=== PATIENT | female | born 1995 | race Caucasian/White ===

== ENCOUNTER 2019-04-06 14:29 | Emergency (ER) | payer OTHER ==
--- OUTSIDE RECORDS SUMMARY | 2019-04-06 16:46 | XMS REPORT | Continuity of Care Document ---
:1995 External Reference #:[id number] Demographics Phone Unavailable Preferred Language Unknown Marital Status Unknown Pentecostalism Affiliation Unknown Race Unknown Ethnic Group Unknown Author Name Radha Patel Description No Information Available Social History Type Date Description Comments Sex Unknown Allergies, Adverse Reactions, Alerts Description No Information Available Medications Description No Information Available Immunizations Description No Information Available Vital Signs Description No Information Available Results Description No Information Available Procedures Description No Information Available Medical Devices Description No Information Available Encounters Description No Information Available Assessments Description No Information Available Plan of Treatment No Information Available Functional Status Description No Information Available Mental Status Description No Information Available Referrals Description No Information Available
--- NOTE | 2019-04-06 17:50 | ED ---
Palpitations / Dysrhythmia - HPI Summary HPI Summary: Patient complains of weird sensation of fluttering in her chest 2 weeks, worst in the past 4 days. Pain rated at 2/10, involves sternum and epigastric area. Also complains of lightheadedness. Denies fever, cough, sore throat, SOB, N/3/D , abdominal pain, change in urine, change in BM. Medical history is anxiety, anemia. Denies caffeine, EtOH, recreational drug use. - History of Current Complaint Chief Complaint: EDDysrhythmPalp Time Seen by Provider: 04/06/19 17:46 Hx Obtained From: Patient Onset/Duration: Gradual Onset, Lasting Days Timing: Intermittent Episodes Lasting: Severity Initially: Moderate Severity Currently: Moderate Character: Fluttering Aggravating: Nothing Alleviating: Nothing Associated Signs & Symptoms: Lightheadedness, Chest Pain - Allergy/Home Medications Allergies/Adverse Reactions: Allergies Allergy/AdvReac Type Severity Reaction Status Date / Time No Known Allergies Allergy Verified 04/06/19 14:40 PMH/Surg Hx/FS Hx/Imm Hx Endocrine/Hematology History: Denies: Hx Anticoagulant Therapy Cardiovascular History: Denies: Hx Pacemaker/ICD History: Denies: Hx Dialysis Sensory History: Denies: Hx Eye Prosthesis Opthamlomology History: Denies: Hx Legally Blind EENT History: Denies: Hx Deafness Neurological History: Denies: Hx Dementia Infectious Disease History: No Infectious Disease History: Denies: Traveled Outside the [place] in Last 30 Days - Family History Known Family History: Positive: Non-Contributory - Social History Alcohol Use: Occasionally Hx Substance Use: No Hx Tobacco Use: No Review of Systems Constitutional: Negative Eyes: Negative ENT: Negative Positive: Palpitations Respiratory: Negative Gastrointestinal: Negative Genitourinary: Negative Musculoskeletal: Negative Skin: Negative Neurological: Negative Psychological: Normal All Other Systems Reviewed And Are Negative: Yes Physical Exam Triage Information Reviewed: Yes Vital Signs On Initial Exam: Initial Vitals Temp Pulse Resp BP Pulse Ox 98 F 92 20 113/79 98 04/06/19 14:37 04/06/19 14:37 04/06/19 14:37 04/06/19 14:37 04/06/19 14:37 Vital Signs Reviewed: Yes Appearance: Positive: Well-Appearing Skin: Positive: Warm Head/Face: Positive: Normal Head/Face Inspection Eyes: Positive: Normal Neck: Positive: Supple Respiratory/Lung Sounds: Positive: Clear to Auscultation Cardiovascular: Positive: Normal Abdomen Description: Positive: Nontender Musculoskeletal: Positive: Normal Neurological: Positive: Normal Psychiatric: Positive: Normal AVPU Assessment: Alert - [place] Coma Scale Best Eye Response: 4 - Spontaneous Best Motor Response: 6 - Obeys Commands Best Verbal Response: 5 - Oriented Coma Scale Total: 15 Procedures - Sedation Patient Received Moderate/Deep Sedation with Procedure: No Diagnostics - Vital Signs Vital Signs Temp Pulse Resp BP Pulse Ox 04/06/19 16:58 98.6 F 80 16 113/70 99 04/06/19 14:37 98 F 92 20 113/79 98 - Laboratory Result Diagrams: 04/06/19 18:41 04/06/19 18:41 Lab Statement: Any lab studies that have been ordered have been reviewed, and results considered in the medical decision making process. Course/Dx - Course Course Of Treatment: Patient complains of weird sensation of fluttering in her chest 2 weeks, worst in the past 4 days. Pain rated at 2/10, involves sternum and epigastric area. Also complains of lightheadedness. Denies fever, cough, sore throat, SOB, N/3/D, abdominal pain, change in urine, change in BM. Medical history is anxiety, anemia. Denies caffeine, EtOH, recreational drug use. Vital signs within normal limits. Labs unremarkable. D-dimer negative. EKG sinus rhythm, heart rate of 87, normal P axis. No priors on file. Patient advised to follow-up with primary care and cardiology for Holter monitor. - Diagnoses Provider Diagnoses: Palpitations Discharge ED - Sign-Out/Discharge Documenting (check all that apply): Patient Departure - Discharge Plan Condition: Stable Disposition: HOME Patient Education Materials: Heart Palpitations (ED) [facility] [place] - Angela Salmeron MD [Medical Doctor] - Additional Instructions: Follow up with cardiology for further evaluation of palpitations and possible Holter monitor. Return to the ED for any new or worsening symptoms. - Billing Disposition and Condition Condition: STABLE Disposition: Home - Attestation Statements Provider Attestation: I was available for consultation for this patient. I did not evaluate the patient, or participate in any medical decision making or disposition decisions unless I am specifically named in the chart as having consulted on the patient. If I have consulted on the patient, please see my own ED note on the patient encounter. Jonathan Lawrence MD
[2019-04-06 18:47] LABS: Urine Appearance Clear; Urine Bilirubin Negative (Negative); Urine Blood Negative (Negative); Urine Color Straw; Urine Glucose Negative (Negative); Urine Ketones Negative (Negative); Urine Nitrite Negative (Negative); Urine Protein Negative (Negative); Urine Specific Gravity 1.006 (1.010-1.030); Urine Urobilinogen Negative (Negative)
[2019-04-06 18:53] LABS: ABS Basophils 0.1 10^3/ul (0-0.2); ABS Eosinophils 0.4 10^3/ul (0-0.6); ABS Lymphocytes 2.5 10^3/ul (1.0-4.8); ABS Monocytes 0.8 10^3/ul (0-0.8); ABS Neutrophils 4.7 10^3/ul (1.5-7.7); Eosinophil % 4.9 %; Hematocrit 42 % (35-47); Hemoglobin 14.2 g/dL (12.0-16.0); Lymphocyte % 29.9 %; Mean Corpuscular HGB Conc 34 g/dL (31-36); Mean Corpuscular Hemoglobin 29 pg (27-31); Mean Corpuscular Volume 87 fL (80-97); Platelet Count 308 10^3/uL (150-450); Red Blood Count 4.88 10^6 /uL (3.70-4.87); Red Cell Distribution Width 13 % (10-15); White Blood Count 8.5 10^3/uL (3.5-10.8)
[2019-04-06 19:11] LABS: ALT 16 U/L (7-52); Albumin 4.5 g/dL (3.2-5.2); Albumin/Globulin Ratio 1.7 (1-3); Alkaline Phosphatase 45 U/L (34-104); BUN/Creatinine Ratio 15.6 (8-20); Blood Urea Nitrogen 12 mg/dL (6-24); C Reactive Protein < 1.00 mg/L (<8.01); CO2 Carbon Dioxide 30 mmol/L (22-32); Calcium 9.3 mg/dL (8.6-10.3); Chloride 104 mmol/L (101-111); EGFR African American 110.5 (>60); EGFR Non-African American 91.3 (>60); Globulin 2.7 g/dL (2-4); Glucose 94 mg/dL (70-100); Magnesium 2.1 mg/dL (1.9-2.7); Sodium 139 mmol/L (135-145); Total Protein 7.2 g/dL (6.4-8.9)
[2019-04-06 19:18] LABS: HCG Pregnancy < 0.60 mIU/mL
[2019-04-06 19:33] LABS: TSH (Thyroid Stimulating Horm) 3.19 mcIU/mL (0.34-5.60)
[2019-04-06 21:34] LABS: AST 21 U/L (13-39); Anion Gap 5 mmol/L (2-11); Potassium 4.1 mmol/L (3.5-5.0)
== END 2019-04-06 19:48 | disposition home or self-care (01) ==
LOC: ED 14:29
DX: R00.2 Palpitations (principal)
CPT/HCPCS: 36415; 80053; 81003; 83735; 84443; 84484; 84702; 85025; 85379; 86140; 93005; 99282